=== PATIENT | male | born 1975 | race Caucasian/White ===

== ENCOUNTER 2017-11-28 11:49 | Emergency (ER) | payer OTHER ==
[~2017-11-28] VITALS: Ht 162.6 cm; Wt 74.4 kg
[2017-11-28 12:05] VITALS: BP 137/76; Ht 162.6 cm; Wt 74.4 kg
== END 2017-11-28 12:29 | disposition home or self-care (01) ==
LOC: ED 11:49
DX: Z00.8 Encounter for other general examination (principal); F32.9 Major depressive disorder, single episode, unspecified; I10 Essential (primary) hypertension; Z98.890 Other specified postprocedural states; Z88.8 Allergy status to other drugs, medicaments and biological substances

== ENCOUNTER 2018-09-12 23:55 | Emergency (ER) | payer OTHER ==
[~2018-09-12] VITALS: Ht 162.6 cm; Wt 91.6 kg
[2018-09-13 00:12] VITALS: Ht 162.6 cm; Wt 91.6 kg
[2018-09-13 02:34] VITALS: BP 138/92
== END 2018-09-13 02:34 | disposition home or self-care (01) ==
LOC: ED 23:55
DX: N45.4 Abscess of epididymis or testis (principal); Z98.890 Other specified postprocedural states

== ENCOUNTER 2019-05-06 00:49 | Emergency (ER) | payer OTHER ==
[~2019-05-06] VITALS: Ht 167.6 cm; Wt 96.6 kg
[2019-05-06 00:56] VITALS: Ht 167.6 cm; Wt 96.6 kg
[2019-05-06 02:38] VITALS: BP 133/87
== END 2019-05-06 02:38 | disposition home or self-care (01) ==
LOC: ED 00:49
DX: J02.9 Acute pharyngitis, unspecified (principal); I10 Essential (primary) hypertension; Z88.8 Allergy status to other drugs, medicaments and biological substances; Z98.890 Other specified postprocedural states
CPT/HCPCS: 87804; J1100

== ENCOUNTER 2019-07-18 13:23 | Emergency (ER) | payer OTHER ==
[~2019-07-18] VITALS: Ht 170.2 cm; Wt 95.7 kg
[2019-07-18 13:33] VITALS: BP 149/89; Ht 170.2 cm; Wt 95.7 kg
== END 2019-07-18 14:11 | disposition home or self-care (01) ==
LOC: ED 13:23
DX: Z20.828 Contact with and (suspected) exposure to other viral communicable diseases (principal); I10 Essential (primary) hypertension; Z98.890 Other specified postprocedural states
CPT/HCPCS: U0003-CS